=== PATIENT | female | born 1965 | race Caucasian/White ===

== ENCOUNTER 2022-06-24 08:30 | Day surgery (SDC) | payer BC ==
[2022-06-22 15:56] VITALS: BMI 48.4
[~2022-06-24 08:30] MED LIST: LACTATED RINGERS 1,000 ML IV SCH
[2022-06-24 08:58] VITALS: RESP 16; TEMP 96.2
[2022-06-24] MEDS ORDERED: PROPOFOL 10 MG/ML 20 ML VIAL IV ONE (09:53)
[2022-06-24] MEDS ORDERED: MIDAZOLAM 2 MG/2 ML VIAL ONE (09:53)
[2022-06-24] MEDS ORDERED: fentaNYL (PF) 50 MCG/ML 2 ML AMP ONE (09:53)
--- NOTE | 2022-06-24 10:15 | P.PCN ---
Date of Procedure: 06/24/22 Procedure(s) Performed: BRIEF HISTORY: Patient is a 57-year-old pleasant female scheduled for an elective colonoscopy as a part of screening for colon cancer/positive cologuard Her brother was diagnosed with colon cancer at age 51. PROCEDURE PERFORMED: Colonoscopy snare polypectomy. PREOPERATIVE DIAGNOSIS: Screening for colon cancer/positive cologuard/family history of colon cancer. IV sedation per Anesthesia. PROCEDURE: After informed consent was obtained, the patient, was brought into the endoscopy unit. IV sedation was administered by Anesthesia under continuous monitoring. Digital rectal examination was normal. Initially the Olympus CF-160 flexible video colonoscope was then inserted in the rectum, gradually advanced into the cecum without any difficulty. Careful examination was performed as the scope was gradually being withdrawn. Ileocecal valve and the appendiceal orifice were visualized and appeared normal. Prep was excellent. Mucosa of the cecum, ascending colon, transverse colon appeared normal. In the descending colon there was a 5 mm polyp removed by snare polypectomy. Rest descending colon, sigmoid colon, and rectum appeared normal. Retroflexion was performed in the rectum and no lesions were seen. The patient tolerated the procedure well. IMPRESSION: 5 mm; descending colon polyp status post polypectomy Rest of the colon appeared normal RECOMMENDATIONS: Findings of this examination were discussed with the patient as well as her family. She was advised to follow with the biopsy results. Recommend repeat colonoscopy in 5 years because of the family history of colon cancer.
[2022-06-24 10:33] VITALS: BP 102/68; PULSE 68
== END 2022-06-24 10:42 | disposition home or self-care (01) ==
LOC: ORWHC2ENDO 08:30
PROVIDERS: ATTEND Internal Medicine Gastroenterology
DX: K63.5 Polyp of colon (principal); Q85.89 Other phakomatoses, not elsewhere classified; J45.909 Unspecified asthma, uncomplicated; Z80.0 Family history of malignant neoplasm of digestive organs; E07.9 Disorder of thyroid, unspecified; F41.9 Anxiety disorder, unspecified; E66.01 Morbid (severe) obesity due to excess calories; Z79.899 Other long term (current) drug therapy
CPT/HCPCS: 81025; 88305; 45385; J2250; J3010; J2704